=== PATIENT | female | born 1950 ===

== ENCOUNTER 2017-03-19 07:50 | Emergency (ER) | payer OTHER ==
[2017-03-19 07:50] VITALS: BMI 23.3
[2017-03-19] MEDS ORDERED: Sodium Chloride 0.9% 1,000 ML IV ONE ×2 (08:09→09:20)
[2017-03-19] MEDS ORDERED: Sodium Chloride 0.9% 1,000 ML ONE ×2 (08:39→10:56)
[2017-03-19 08:40] LABS: BASO % 0.1 % (0.0-2.0); EOS % 0.4 % (0.0-4.0); HEMOGLOBIN 12.6 g/dL (11.0-16.0); LYMPH # 0.5 K/uL (1.0-4.3); LYMPH % 4.5 % (20.0-40.0); MEAN CELL VOLUME 91.5 fL (81.0-99.0); MEAN CORPUSCULAR HEMOGLOBIN 32.2 pg (27.0-31.0); MEAN CORPUSCULAR HGB CONC 35.2 g/dL (33.0-37.0); MONO # 0.3 K/uL (0.0-0.8); NEUT # 9.4 K/uL (1.8-7.0); PLATELET COUNT 218 K/uL (130-400); RBC 3.91 Mil/uL (3.80-5.20); RED CELL DISTRIBUTION WIDTH 13.8 % (11.5-14.5); WHITE BLOOD COUNT 10.2 K/uL (4.8-10.8)
[2017-03-19 08:50] LABS: ALB/GLOB RATIO 1.2 (1.0-2.1); ALBUMIN 4.2 g/dL (3.5-5.0); ALT/SGPT 27 U/L (9-52); AST/SGOT 29 U/L (14-36); BLOOD UREA NITROGEN 21 mg/dL (7-17); CALCIUM 9.3 mg/dl (8.6-10.4); GFR AFRICAN-AMERICAN > 60; GFR NON-AFRICAN AMERICAN > 60; LIPASE 57 U/L (23-300); URINE BILIRUBIN NEGATIVE (NEGATIVE); URINE BLOOD NEGATIVE (NEGATIVE); URINE CLARITY Clear (Clear); URINE COLOR Yellow (YELLOW); URINE GLUCOSE (UA) NORMAL (Normal); URINE LEUKOCYTE ESTERASE NEG Leu/uL (Negative); URINE NITRATE NEGATIVE (NEGATIVE); URINE PROTEIN 1+ mg/dL (NEGATIVE); URINE UROBILINOGEN NORMAL mg/dL (0.2-1.0)
--- NOTE | 2017-03-19 09:00 | C.PDOC ---
History Of Present Illness 66 year old female presents to ED for evaluation of epigastric abdominal pain, n /v/d, and lightheadedness since last night. (+) sick contact, multiple family members sick with similar symptoms. Otherwise, denies fever, chills, chest pain , shortness of breath, dysuria, hematuria, or back pain. Time Seen by Provider: 03/19/17 07:54 Chief Complaint (Nursing): Abdominal Pain History Per: Patient History/Exam Limitations: no limitations Onset/Duration Of Symptoms: Days (1) Current Symptoms Are (Timing): Still Present Location Of Pain/Discomfort: Epigastric Radiation Of Pain To:: None Quality Of Discomfort: "Pain" Associated Symptoms: Nausea, Vomiting, Diarrhea. denies: Loss Of Appetite, Back Pain, Chest Pain, Constipation, Urinary Symptoms Exacerbating Factors: None Alleviating Factors: None Recent travel outside of the [place]: No Additional History Per: Patient Abnormal Vaginal Bleeding: No Past Medical History Reviewed: Historical Data, Nursing Documentation, Vital Signs Vital Signs: Last Vital Signs Temp 98.0 F 03/19/17 10:35 Pulse 78 03/19/17 10:35 Resp 16 03/19/17 10:35 BP 99/60 L 03/19/17 10:35 Pulse Ox 99 03/19/17 10:35 - Medical History PMH: Depression, Diverticulitis Family History: States: Unknown Family Hx - Social History Hx Alcohol Use: No Hx Substance Use: No - Immunization History Hx Tetanus Toxoid Vaccination: No Hx Influenza Vaccination: No Hx Pneumococcal Vaccination: No Review Of Systems Except As Marked, All Systems Reviewed And Found Negative. Constitutional: Negative for: Fever, Chills Cardiovascular: Positive for: Light Headedness. Negative for: Chest Pain, Palpitations Respiratory: Negative for: Shortness of Breath Gastrointestinal: Positive for: Nausea, Vomiting, Abdominal Pain, Diarrhea. Negative for: Melena, Hematochezia, Hematemesis Genitourinary: Negative for: Dysuria, Frequency, Hematuria, Vaginal Discharge Musculoskeletal: Negative for: Back Pain Neurological: Negative for: Headache Physical Exam - Physical Exam Appears: Non-toxic, No Acute Distress Skin: Normal Color, Warm, Dry Head: Normacephalic Eye(s): bilateral: Normal Inspection Oral Mucosa: Moist Neck: Supple Cardiovascular: Rhythm Regular, No Murmur Respiratory: Normal Breath Sounds, No Rales, No Rhonchi, No Wheezing Gastrointestinal/Abdominal: Soft, No Tenderness, No Guarding, No Rebound Back: No CVA Tenderness Extremity: Normal ROM, No Deformity Neurological/Psych: Oriented x3, Normal Speech ED Course And Treatment - Laboratory Results Result Diagrams: 03/19/17 10:40 03/19/17 08:34 O2 Sat by Pulse Oximetry: 100 (RA) Pulse Ox Interpretation: Normal Progress Note: Blood work, UA ordered and reviewed. Pt was given Pepcid, and IV fluids. Disposition Counseled Patient/Family Regarding: Diagnosis, Need For Followup, Rx Given - Disposition Referrals: [facility] at [facility] [Outside] Disposition: HOME/ ROUTINE Disposition Time: 12:15 Condition: STABLE Additional Instructions: SEGUIMIENTO CON MATHIAS MDICO EN 1-2 KIMBROUGH USE MEDICAMENTOS SEGN SEA NECESARIO MARGE UN MONTN DE FLUIDOS JUANITA REGRESE AL VAL DE EMERGENCIA SI LOS SNTOMAS EMPEORAN FOLLOW UP WITH YOUR DOCTOR IN 1-2 DAYS USE MEDICATIONS NEEDED DRINK PLENTY OF CLEAR FLUIDS RETURN TO EMERGENCY ROOM IF SYMPTOMS WORSEN Prescriptions: Dicyclomine [Bentyl] 20 mg PO Q6 PRN #12 tab PRN Reason: ABDOMINAL CRAMPING Ondansetron [Zofran Odt] 4 mg PO Q8 PRN #10 odt PRN Reason: Nausea/Vomiting Instructions: Gastroenteritis (ED) Forms: [facility] (Uzbek) Print Language: GUATEMALAN - Clinical Impression Clinical Impression: Gastroenteritis - Scribe Statement The provider has reviewed the documentation as recorded by the Trippibpamela Friedman All medical record entries made by the Trippibpamela were at my direction and personally dictated by me. I have reviewed the chart and agree that the record accurately reflects my personal performance of the history, physical exam, medical decision making, and the department course for this patient. I have also personally directed, reviewed, and agree with the discharge instructions and disposition.
[2017-03-19 09:01] LABS: BANDS 4 % (0-2); LYMPHOCYTE 6 % (20-40); MONOCYTE 2 % (0-10); NEUTROPHIL 88 % (50-75); TOTAL CELLS COUNTED 100
[2017-03-19 09:02] LABS: ANISOCYTOSIS SLIGHT; PLATELET ESTIMATE NORMAL (NORMAL); TOXIC GRANULATION PRESENT
[2017-03-19 09:03] LABS: LARGE PLATELETS PRESENT; OVALOCYTES SLIGHT; POIKILOCYTOSIS SLIGHT; POLYCHROMIC SLIGHT
[2017-03-19 09:04] LABS: GIANT PLATELETS PRESENT
[2017-03-19 10:47] LABS: BASO % 0.2 % (0.0-2.0); EOS % 0.3 % (0.0-4.0); HEMOGLOBIN 11.9 g/dL (11.0-16.0); LYMPH # 0.5 K/uL (1.0-4.3); LYMPH % 5.5 % (20.0-40.0); MEAN CELL VOLUME 91.8 fL (81.0-99.0); MEAN CORPUSCULAR HEMOGLOBIN 32.2 pg (27.0-31.0); MEAN CORPUSCULAR HGB CONC 35.1 g/dL (33.0-37.0); MEAN PLATELET VOLUME 10.8 fL (7.2-11.7); MONO # 0.4 K/uL (0.0-0.8); MONO % 4.2 % (0.0-10.0); NEUT # 8.2 K/uL (1.8-7.0); NEUT % 89.8 % (50.0-75.0); RBC 3.68 Mil/uL (3.80-5.20); RED CELL DISTRIBUTION WIDTH 13.7 % (11.5-14.5); WHITE BLOOD COUNT 9.1 K/uL (4.8-10.8)
[2017-03-19 12:33] VITALS: BP 100/58; PULSE 80; RESP 20; TEMP 98.8; O2SAT 98
== END 2017-03-19 12:34 | disposition home or self-care (01) ==
LOC: C.ER 07:50
DX: K52.9 Noninfective gastroenteritis and colitis, unspecified (principal)
CPT/HCPCS: 80053; 81001; 83690; 85025; 96361; 96374; 99284; J7040